=== PATIENT | female | born 1975 | race Caucasian/White ===

== ENCOUNTER 2021-11-05 16:50 | Emergency (ER) | payer MEDICAID ==
[~2021-11-05] VITALS: Ht 160 cm; Wt 73.0 kg
[2021-11-05 16:58] VITALS: BP 143/92
[2021-11-05] MEDS ORDERED: LORAZEPAM 0.5MG TABLET PO ONE (17:15)
[2021-11-05] MEDS ORDERED: ACETAMINOPHEN 325MG TABLET PO ONE ×2 (17:15→17:45)
[2021-11-05] MEDS ORDERED: CYCL10TA7 MT (18:51)
[2021-11-05] MEDS ORDERED: IBUP-2029 MT (18:51)
== END 2021-11-05 19:01 | disposition home or self-care (01) ==
LOC: ER 16:50
DX: M54.50 Low back pain, unspecified (principal); Z90.49 Acquired absence of other specified parts of digestive tract; V43.52XA Car driver injured in collision with other type car in traffic accident, initial encounter; Y93.89 Activity, other specified; Y92.488 Other paved roadways as the place of occurrence of the external cause
CPT/HCPCS: 72100; 99283